=== PATIENT | male | born 1990 | race Hispanic/Latino ===

== ENCOUNTER 2017-06-20 19:50 | Emergency (ER) | payer OTHER ==
[~2017-06-20] VITALS: Ht 175.3 cm; Wt 93.2 kg
[2017-06-20 20:04] VITALS: BP 99/61; PULSE 86; RESP 16; O2SAT 97
--- NOTE | 2017-06-20 21:10 | ED.REPORT ---
HPI-Allergic Reaction Date of Service Jun 20, 2017 ED Provider: Ruddy Young MD Pt is a healthy 26 year old male who presents to the ED with a tingling sensation all over his body from a possible allergic reaction onset 1.5 hours ago. He states that he was playing basketball, when his feet started tingling and he no longer could stand. Pt then noticed that his face and throat started to become swollen. Additional symptoms include generalized weakness, rash, bilateral eye redness, chills, SOB, mild throat swelling, vomiting x1, and intermittent itching to his chest and arms. He denies nausea, known allergies, eating any new foods, or new bites/stings. Nursing Notes Stated Complaint: ALLERGIC REACTION Chief Complaint: Allergic Reaction Nursing Notes Reviewed: Yes ([employer], [employer] not reconciled) Allergies: Coded Allergies: No Known Allergies (Unverified , 06/20/17) General Time Seen by MD: 21:08 Chief Complaint Allergic reaction Hx Obtained From: Patient Arrived By: Walk-in Onset Occurred: 1 - 4 hours ago Symptom Duration: Constant Progression Since Onset: Unchanged Quality: Painful Severity: Current: Moderate Severity: Maximum: Severe Recent Healthcare: No recent doctor visit, No recent hospitalization Similar Sx Previous: No Past Medical History Past Medical History Denies Past Surgical History Left forearm surgery from a fall Family History No family history of allergies Smoking History Never Smoker Social History Other Social History: Good social support Ambulatory Status Independent Review of Systems Review of Systems Note: Tingling sensation all over body Constitutional: Reports: Chills, Weakness - generalized Eyes: Reports: Redness bilateral Ears / Nose / Throat: Reports: Tongue swelling (mild) Respiratory: Reports: Shortness of breath GI: Reports: Vomiting (x1), Denies: Nausea Skin: Reports Itching (intermittent to chest and arms), Reports Rash ( generalized) Complete sys rev & neg: except as marked. Physical Exam Initial Vital Signs Vital Signs (First) Date Time Temp Pulse Resp B/P Pulse Ox O2 Delivery O2 Flow Rate FiO2 06/20/17 20:04 36.6 86 16 99/61 97 Room Air Initial VS: Reviewed, Vital signs abnormal Abdomen / GI: Soft, Non-tender Extremities: Vascular intact, Neuro intact, No swelling, No tenderness Neurologic: Alert, Oriented, Nonfocal Psychiatric: Mood/affect normal, Behavior normal, Normal thought content General/Constitutional: Awake, Alert Appearance / Presentation: Positive: Uncomfortable Shivering Respiratory / Chest: Atraumatic, No respiratory distress Complains of shortness of breath, but no hoarseness in voice Cardiovascular: Heart rate NL, Heart sounds NL Heart Rate / Rhythm: Positive: Tachycardia (mild) Skin: Warm, Dry Generalized urticaria Head / Eyes: Normocephalic Conjunctiva / Sclera: Positive: Injected left, Injected right Periorbital edema bilaterally ENT: Atraumatic, Airway patent Speech is clear, but may have subtle lip angioedema Tongue is normal Interpretation & Diagnostics Lab Results Interpretation Result Diagram: 06/20/17205406/20/172054 Test 06/20/17 20:54 06/20/17 20:55 Hold Purple Top Tube Received (Received) Hold Blue Top Tube Received (Received) Hold [place] Top Tube Received (Received) Hold [place] Top Tube Received (Received) White Blood Count 10.9th/mm3 (3.8-10.1) Red Blood Count 5.31mil/mm3 (4.40-5.80) Hemoglobin 15.5g/dL (13.8-17.2) Hematocrit 44.5% (41.0-50.0) Mean Corpuscular Volume 83.8fL (81-100) Mean Corpuscular Hemoglobin 29.2pg (27.0-35.0) Mean Corpuscular Hemoglobin Concent 34.8% (32.0-37.0) Red Cell Distribution Width 13.0% (12.3-15.4) Platelet Count 303bil/L (150-400) Neutrophils (%) (Auto) 55.6% (40-74) Lymphocytes (%) (Auto) 37.4% (14-46) Monocytes (%) (Auto) 4.6% (4-12) Eosinophils (%) (Auto) 2.0% (0-5) Basophils (%) (Auto) 0.1% (0-3) Sodium Level 141mEq/L (134-144) Potassium Level 3.3mEq/L (3.5-5.2) Chloride Level 101mEq/L (97-108) Carbon Dioxide Level 25mmol/L (18-29) Blood Urea Nitrogen 21mg/dL (6-20) Creatinine 1.12mg/dL (0.76-1.27) Estimat Glomerular Filtration Rate 84mL/min (>59) Glucose Level 166mg/dL (60-99) Calcium Level 8.5mg/dL (8.5-10.1) Total Bilirubin 0.2mg/dL (0.0-1.2) Aspartate Amino Transf (AST/SGOT) 26U/L (0-50) Alanine Aminotransferase (ALT/SGPT) 26U/L (0-44) Alkaline Phosphatase 86U/L (25-150) Total Protein 6.8g/dL (6.4-8.4) Albumin 4.1g/dL (3.4-5.0) Lab Results Interpretation: CBC nonspecific leukocytosis CMP normal Re-Eval/Medical Decision Med Decision/Clinical Course This is a 26-year-old male without major past medical history reports he started to play basketball came, then he became dizzy, lightheaded, developed rash, swelling of his lips and and feet, developed nausea vomiting 1 is slight sense of shortness of breath. He denies prior history of allergic reaction or anaphylaxis, but became too dizzy to stand and was brought to the ED. He denies suspicious food exposure, denies any medication, denies insect bite or sting. On exam he has some periorbital edema, questionable trace and edema of the lip, but his voice is normal, he had demonstrates no visible signs of respiratory distress COMPLAINTS was trace sense of shortness breath, he has no audible bronchospasm, his abdomen is soft, his blood pressure slightly low, and he has generalized urticaria. He also has some chills but has no localizing infectious symptoms, and is currently afebrile. The patient meets criteria for anaphylaxis received a dose of epinephrine, with resolution of symptoms. Hives resolved, blood pressure normalized, respiratory symptoms resolved, and he feels back to normal. He is facial edema improved, and was subtle. He had no evidence of airway compromise. He received steroids, Benadryl, Pepcid. It was observed and had no recurrence. Labs were normal. He feels much better. A low-grade temperature shortly after the epinephrine, but again symptoms have resolved and responded for treatment from flaccid, and he adamantly denies any other symptoms. He feels well is comfortable discharged home. He is aware that a definite source for the allergic reaction was not determined. Routine and return cautions reviewed. Source of Hx: Old records Re-Evaluation/Progress : Time of Eval: 21:47 Patient Status: Condition resolved Re-Evaluation/Progress Note: Patient rechecked. Patient's rash is gone and feels much better. Discussed plan for discharge. Patient understands and agrees with plan. Follow-up and return to ED warnings given. All questions addressed. Differential Diagnosis: Positive: Allergic reaction, Anaphylaxis, Negative: Angioedema, Common cold, Erythema multiforme, Hemolytic uremic syndrome, Idiopathic thromb purpura Counseled Regarding: Diagnosis, Lab results, Need for follow-up, When/why to return to ED Discharge & Departure Primary Impression: Allergic reaction Encounter type: initial encounter Qualified Code: T78.40XA - Allergy, unspecified, initial encounter Additional Impression: Fever Disposition: Home Discharge Condition All VS Reviewed: Yes Condition: Stable Additional Instructions: 1. Your symptoms and exam indicated you had an allergic reaction tonight. Unfortunately there is not a simple way to tell exactly what caused the reaction. 2. Follow up with your provider to discuss referral to an turning machine operator for further evaluation given the severity of your reaction tonight. 3. You received a dose of epinephrine tonight. 4. Take dexamethasone 10mg tomorrow (1/2 syringe - simply empty in to some juice and drink) and the remaining 10mg on . 5. Take it easy today. 6. Take benadryl 25mg 1-2 tabs up every 4 hours for itching/rash as needed. 7. Return again if new or worsening symptoms. [facility] Time Spent: 30-74 minutes Services Performed: Patient management by me, Time spent at bedside, Reviewing test results, Discussing patient care, Documentation in record, Time with fam/ surrogate Critical Care Notes: Management of anaphylaxis Scribe Attestation Portions of this note were transcribed by Lela Salazar. I, Dr. Young, personally performed the history, physical exam and medical decision-making; I reviewed and confirmed the accuracy of the information in the transcribed note. copies to: Silvia Cooper Matthew F MD Jun 20, 2017 21:10 Lela Salazar Jun 20, 2017 21:20
[2017-06-20 21:15] VITALS: BP 138/99; PULSE 110; RESP 20; O2SAT 100
[2017-06-20] MEDS ORDERED: Famotidine Inj 20 MG in IV Premix 1 EACH IV ONE (21:20)
[2017-06-20] MEDS ORDERED: MethylprednisoLONE Sodium Succinate 62.5 mg/mL 2 mL Inj IVPUSH ONE (21:20)
[2017-06-20] MEDS ORDERED: 0.9% Sodium Chloride 1,000 ML IV ONE (21:20)
[2017-06-20 21:51] LABS: BASOPHILS % (AUTO) 0.1 % (0-3); MONOCYTES % (AUTO) 4.6 % (4-12); Mean Corpuscular Hemoglobin 29.2 pg (27.0-35.0); Mean Corpuscular Volume 83.8 fL (81-100); NEUTROPHILS % (AUTO) 55.6 % (40-74); Platelet Count 303 bil/L (150-400)
[2017-06-20 22:25] VITALS: BP 124/47; PULSE 89; RESP 20; O2SAT 96
[2017-06-20] MEDS ORDERED: Dexamethasone 20 mg/2 mL Oral Solution PO ONE (23:20)
[2017-06-20] MEDS ORDERED: EPIN0.3P2 IJ (23:23)
[2017-06-20 23:37] VITALS: BP 125/45; PULSE 81; RESP 16; O2SAT 99
== END 2017-06-20 23:38 | disposition home or self-care (01) ==
LOC: SED 19:50
DX: L50.9 Urticaria, unspecified (principal); R50.9 Fever, unspecified; T78.40XA Allergy, unspecified, initial encounter; Y93.67 Activity, basketball; Y99.8 Other external cause status; Y92.310 Basketball court as the place of occurrence of the external cause
CPT/HCPCS: 36415; 80053; 85025; 96361; 96372; 96374; 96375; 99291; J0171; J1200; J2930; J3490; J7030